=== PATIENT | male | born 1955 | race Caucasian/White ===

== ENCOUNTER 2024-03-17 02:07 | Emergency (ER) | payer MEDICARE, MEDICAID ==
[~2024-03-17] VITALS: Ht 172.7 cm; Wt 68.0 kg
[2024-03-17] MEDS ORDERED: LEVETIRACETAM (500MG) 500 MG/5 ML VIAL IV ONE (02:29)
[2024-03-17] MEDS: LEVETIRACETAM (500MG) 1,000 MG in IV NS 0.9% 90 ML IV SCH (02:30)
[2024-03-17] MEDS ORDERED: LEVETIRACETAM (250 MG) 250 MG TABLET PO ONE (04:19)
[2024-03-17] MEDS: LEVETIRACETAM (250 MG) 250 MG TABLET PO ONE (04:22)
[2024-03-17 12:58] VITALS: BP 136/98; TEMP 98.6; O2SAT 98
== END 2024-03-17 12:59 | disposition left against medical advice (07) ==
LOC: EDBD 02:11 → ER 02:11
DX: G40.89 Other seizures (principal)
CPT/HCPCS: 99284; 70450; 71045; 93005; J7030; J1953